=== PATIENT | male | born 1990 | race Caucasian/White ===

== ENCOUNTER 2023-12-14 14:09 | Emergency (ER) | payer SELFPAY ==
[2023-12-14 14:19] VITALS: BP 142/72; PULSE 61; RESP 16; TEMP 37.1; O2SAT 98
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
== END 2023-12-14 14:50 | disposition home or self-care (01) ==
PROVIDERS: Emergency Provider Nurse Practitioner Family
DX: M25.512 Pain in left shoulder (principal); V48.5XXA Car driver injured in noncollision transport accident in traffic accident, initial encounter
CPT/HCPCS: 99203; G0463

== ENCOUNTER 2025-01-02 13:52 | Outpatient (CLI) | payer OTHER, SELFPAY ==
--- OUTSIDE RECORDS SUMMARY | 2001-04-04 09:00 | XMS_ITS | Continuity of Care Document ---
Author Organization [facility] Address [address] [place] [address] [place] [address] Phone Care Team Providers Care Field Technical Support Consultant Name Role Phone Shawn Alexander MD Unavailable Unavailable Advance Directives Directive Yes / No Effective Date File Name No Information Encounters Encounter Description Practice Location Reason(s) For Visit Diagnoses Date Provider Providers Copied on Encounter [facility], [id number] [place] [address] [address], [place], [place], [id number], [place] tel:[phone] SEC [place] [facility] No Information [address]. [address] [facility] [address], [place], [place], [id number], [place]. tel:[phone] Family History Family Member Type Diagnosis Age At Onset No Information Payers Payer name Insurance type Covered green party ID Authoriza tion(s) No Information Social History Type Description Quantity Date Captured Comments Sex Male Smoking Status No Information Chief Complaint And Reason For Visit No Information Reason For Referral Reason For Referral No Information History Of Present Illness Encounter Date Complaint History Of Prese nt Illness No Information Functional Status Date Functional Assessmen t No Information Instructions Date Instruction Additional Infor mation No Information Assessments Type Assessment Date No Information Patient Care Teams Name Effective Dates (start - stop) Status Members No Information
--- OUTSIDE RECORDS SUMMARY | 2024-06-06 04:20 | XMS_ITS ---
Author Organization [facility] Address [address] [place] [address] Care Team Providers Care Statistics Intern Name Role Phone Yg Morrow Primary Care Provider [phone] REASON FOR VISIT f/u Social History Sex Assigned At : Social History Observation Description Sex Assigned At Male Encounters Encounter Location Date Provider Diagnosis [address] [address] 06/06/2024 Yg Morrow Plan Of Treatment No Information Progress Notes * José Luis BUSTILLODOB:1990 (34 yo M)Acc No.[id number]:06/06/2024 UNLOCKED PROGRESS NOTE Progress Notes Patient: José Luis GUILLERMO Provider: Mynor Morrow :1990 A ge:34 Y S ex:Male Date:06/06/2024 Phone: Address:[address] [place], [place] [id number] Subjective: * Chief Complaints: * 1 . F/u. * Medical History: Objective: * Vitals: Assessment: Plan: * Treatment: * * Electronic signature of Sagar Morrow , [id number] on 01/02/2025 at 04:25 PM CDT Sign off status: Pending * Provider: Mynor Morrow Date: 0 06/06/2024 Generated for Rodrigue garcia/Michelle/Justice on: 1 04:25 PM CDT
--- OUTSIDE RECORDS SUMMARY | 2024-06-07 03:40 | XMS_ITS ---
Author Organization [facility] Address [address] [place] [address] Care Team Providers Care Pulmonology Physician Name Role Phone Yg Mrorow Primary Care Provider REASON FOR VISIT Follow up Social History Sex Assigned At : Social History Observation Description Sex Assigned At Male Encounters Encounter Location Date Provider Diagnosis [address] [address] 06/07/2024 Yg Morrow Plan Of Treatment No Information Progress Notes * José Luis BUSTILLODOB:1990 (34 yo M)Acc No.[id number]:06/07/2024 UNLOCKED PROGRESS NOTE Progress Notes Patient: José Luis GUILLERMO Provider: Mynor Morrow :1990 A ge:34 Y S ex:Male Date:06/07/2024 Phone: Address:[address] [place], [place] [id number] Subjective: * Chief Complaints: * 1 . Follow up. * Medical History: Objective: * Vitals: Assessment: Plan: * Treatment: * * Electronic signature of Sagar Morrow , [id number] on 01/02/2025 at 04:25 PM CDT Sign off status: Pending * Provider: Mynor Morrow Date: 0 06/07/2024 Generated for Rodrigue garcia/Michelle/Justice on: 1 04:25 PM CDT
--- OUTSIDE RECORDS SUMMARY | 2025-01-02 04:20 | XMS_ITS ---
Author Organization [facility] Address [address] [place] [address] Care Team Providers Care Furnace Hand Name Role Phone Yg Morrow Primary Care Provider [phone] Allergies No Known Allergies REASON FOR VISIT f/u infection Medications Medication SIG (Take, Route, Frequency, Duration) Notes Start Date End Date Status Doxycycline Hyclate 100 MG 1 capsule Ora lly twice a day; Duration: 10 days 01/02/2025 Active Escitalopram Oxalate 10 MG 1 tablet Oral ly Once a day; Duration: 30 days Active Naproxen 500 MG 1 tablet with food o r milk as needed Orally every 12 hrs; Duration: 30 days 02/20/2024 Active Lidocaine 5 % 1 patch remove after 12 hours Externally Once a day; Duration: 30 days As needed TO RIGHT THIGH 04/04/2024 Active Social History Tobacco Use: Social History Observation Description Date Details (start date - stop date) Unknown Sex Assigned At : Social History Observation Description Sex Assigned At Male Tobacco Control (Standard) Question Answer Notes Tobacco use: Uses tobacco in other forms Additional Findings: Tobacco user e-cigarette Vital Signs Weight 246.0 lbs lbs 01/02/2025 Height 72 in in 01/02/2025 BMI 33.36 kg/m2 01/02/2025 Blood pressure systolic 128 mm Hg 01/03/20 25 Blood pressure diastolic 82 mm Hg 025 Heart Rate 82 /min 01/02/2025 Oximetry 98 % 01/02/2025 Temperature 97.8 degrees Fahrenheit 01/03/20 25 Respiratory Rate 16 /min 01/02/2025 Encounters Encounter Location Date Provider Diagnosis [address] [place] [address] 01/02/2025 Yg Morrow Staph infection B95. 8 and Folliculitis L73.9 Assessments Encounter Date Diagnosis (ICD Code) Assessment Notes Treatment Notes Treatment Clinical Notes Section Notes 01/02/2025 Staph infection (ICD-10 - B95.8) Off work 1014-01/12, return 01/13. 01/02/2025 Folliculitis (ICD-10 - L73.9) consider nasal swab for staph if recurrence. Discussed antibacterial soap, hypoallergenic moisturizer. 01/02/2025 Other Learning About the Safe Use of Antibiotics material was discussed. Pt was educated on use of antibiotic medication including dosing, side effects, adverse effects and anticipated response. Pt was also educated on importance of completing full course of treatment as ordered. Patient voiced understanding of all. Plan Of Treatment Medication Medication Name Sig Start Date Stop Date Notes Doxycycline Hyclate 100 MG 1 capsule Ora lly twice a day; Duration: 10 days 01/02/2025 Treatment Notes Assessment Notes Other Learning About the S afe Use of Antibiotics material was discussed. Pt was educated on use of antibiotic medication including dosing, side effects, adverse effects and anticipated response. Pt was also educated on importance of completing full course of treatment as ordered. Patient voiced understanding of all. Future Test Test Name Order Date MRSA Screening Culture 01/02/2025 Next Appt Details Follow Up: 2 Weeks, Reason: After treatment of staph infection Progress Notes * José Luis BUSTILLODOB:1990 (34 yo M)Acc No.[id number]:01/02/2025 Progress Notes Patient: José Luis GUILLERMO Provider: Mynor Morrow :1990 A ge:34 Y S ex:Male Date:01/02/2025 Phone: Address:[address] [place] [address] [facility] Subjective: * Chief Complaints: * F /u infection * HPI: I nterim History: Emergency room visit N o. Was hospitalized N o. Was feeling good. Recurrent infection on skin. Pustules. left neck and lerft arm. right leg. groin. D epression Screening: PHQ-9 L ittle interest or pleasure in doing things?Several days F eeling down, depressed, or hopeless S everal days T rouble falling or staying asleep, or sleeping too much S everal days F eeling tired or having little energy S everal days P oor appetite or overeating S everal F eeling bad about yourself or that you are a failure, or have let yourself or your family down S everal T rouble concentrating on things, such as reading the newspaper or watching television S ever M oving or speaking so slowly that other people could have noticed; or the opposite, being so fidgety or restless that you have been moving around a lot more than usual N ot at all T houghts that you would be better off or of hurting yourself in some way N ot at all T otal Score 7 I nterpretation M ild Depression S creening: [place] Suicide Severity Rating Scale (LF) D o you want to initiate with S creener form 1 . Wish to be : Have you wished you were or wished you could go to sleep and not wake up? N o 2 . Suicidal Thoughts: Have you actually had any thoughts of killing yourself? N o 6 . Suicide Behavior Question: Have you ever done anything,started to do anything, or prepared to end your life? N o I nterpretation: L ow Risk C SSRS Interpretation and Follow Up Plan: CSSRS Interpretation and Follow Up Plan C SSRS Screen documented using SF Y es R isk Disposition from SF L ow - No Follow Up Plan Required F ollow Up Plan N o Follow Up Plan required at this time. T imeframe of Screening T winston * Medical History: * Surgical History: r ight ebow 2004right femur 2004 * Hospitalization/Major Diagno stic Procedure: D enies Past Hospitalization * Family History: F ather: alive. M other: alive. 1 brother(s) - healthy. . dad has high blood pressure. * Social History: P rimary Social History: L iving Arrangement L iving Arrangement: I ndependent Living girlfriend I s this a supportive environment? 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 0 T obacco Use: T obacco Control (Standard) T obacco use: U ses tobacco in other forms A dditional Findings: Tobacco user e -cigarette M iscellaneous: M ethod of learning P referred method of learning: R eading,Discussion,Demonstration,Hearing * Medications: T akingNaproxen 500 MG Tablet 1 tablet with food or milk as needed Orally every 12 hrs Lidocaine 5 % Patch 1 patch remove after 12 hours Externally Once a day As needed TO RIGHT THIGHEscitalopram Oxalate 10 MG Tablet 1 tablet Orally Once a day Taking Naproxen 500 MG Tablet 1 tablet with food or milk as needed Orally every 12 hrs Taking Lidocaine 5 % Patch 1 patch remove after 12 hours Externally Once a day As needed TO RIGHT THIGHTaking Escitalopram Oxalate 10 MG Tablet 1 tablet Orally Once a day * Allergies: N .K.D.A.no[Allergies Verified] Objective: * Vitals: I nitials: dt, Wt:246.0 lbs, Ht: 72 in, BMI:33.36, BP:128/82, HR:82, Oxygen sat %:98, Temp:97.8, RR:16, Pain scale:3. * Examination: G eneral Examination: GENERAL APPEARANCE: w ell developed, well nourished, in no acute distress. SKIN: C lusters of dried papules on left lateral neck, left FA, one pustule left proximal medial FA.. Assessment: * Assessment: 1. S taph infection - B95.8 (Primary) 2 . F olliculitis - L73.9 ? Plan: * Treatment: 2. F olliculitis Clinical Notes: consider nasal swab for staph if recurrence. Discussed antibacterial soap, hypoallergenic moisturizer. 3. O thers Notes:Learning About the Safe Use of Antibiotics material was discussed. Pt was educated on use of antibiotic medication including dosing, side effects, adverse effects and anticipated response. Pt was also educated on importance of completing full course of treatment as ordered. Patient voiced understanding of all. * Recommended Wellness and Pre vention Guidelines: * S tatus A lert L ast Done N ext Due A ction Taken N ONCOMPLIANT A lcohol use screening - 1 - - N ONCOMPLIANT H IV screening - 1 - - * Procedure Codes: 3 008F BODY MASS INDEX [id number] Education given- Antibiotics [id number] MEDICAL NUTRITION, INDIV, [id number] BEHAV CHNG SMOKING 3-10 MIN * Preventive Medicine: Counseling: C are goal follow-up plan: BMI management provided Y es Above Normal BMI Follow-up L ifestyle education regarding diet S MOKING: Patient counselled on the dangers of tobacco use and urged to quit. 1 . * Follow Up: 2 Weeks (Reason: After treatment of staph infection) * * Sign off status: Completed true * Provider: Mynor Morrow Date: 1 Generated for Rodrigue garcia/Michelle/Justice on: 04:25 PM CDT History and Physical Notes * HPI (History of Present Illness) Category Sub-Category Detail Notes Category Not es Interim History Was hospitalized No Was feel ing good. Recurrent infection on skin. Pustules. left neck and lerft arm. right leg. groin. Emergency room visit No Depression Screening PHQ-9 Little inte rest or pleasure in doing things: Several days Feeling down, depressed, or hopeless: Se veral days Trouble falling or staying asleep, or sl eeping too much: Several days Feeling tired or having little energy: S everal days Poor appetite or overeating: Several day s Feeling bad about yourself o r that you are a failure, or have let yourself or your family down: Several days Trouble concentrating on thi ngs, such as reading the newspaper or watching television: Several days Moving or speaking so slowly that other people could have noticed; or the opposite, being so fidgety or restless that you have been moving around a lot more than usual: Not at all Thoughts that you would be b matthew off or of hurting yourself in some way: Not at all Total Score: 7 Interpretation: Mild Depression Screening [place] Suicide Sev erity Rating Scale (LF) Do you want to initiate with: Screener form 1. Wish to be : Have you wished you were or wished you could go to sleep and not wake up?: No 2. Suicidal Thoughts: Have you actually had any thoughts of killing yourself?: No 6. Suicide Behavior Question: Have you ever done anything,started to do anything, or prepared to end your life?: No Interpretation:: Low Risk CSSRS Interpretation and Follow Up Plan CSSRS Interpretation and Follow Up Plan CSSRS Screen documented using SF: Yes Risk Disposition from SF: Low - No Follo w Up Plan Required Follow Up Plan: No Follow Up Plan requir ed at this time. Timeframe of Screening: Today Examination Category Sub-Category Detail Notes Category Not es General Examination GENERAL APPEARANCE: well dev eloped, well nourished, in no acute distress SKIN: Clusters of dried pa pules on left lateral neck, left FA, one pustule left proximal medial FA.
[2025-01-02 15:43] LABS: MRSA (PCR) NOT DETECTED (NOT DETECTE)
--- OUTSIDE RECORDS SUMMARY | 2025-01-02 16:26 | XMS_ITS | Patient Health Record ---
Author Organization [facility] Address [address] [place] [address] Care Team Providers Care Academic Dean Name Role Phone Yg Morrow Primary Care Provider Aleah Rhodes Unavailable [phone] Allergies No Known Allergies Reason For Referral Reason BACK INJURY AT WORK WITH ONGOING PAIN, PREFERS DR. 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) Referral Organization [facility] Referring Provider First Name Yg Referring Provider Last Name Odalys Referring Provider Speciality Internal M edicine Referred Provider Specialty Neurological Surgery General Notes Soren SORIANO, Roberta Lowe 02:37:47 PM >referral faxed letter mailed Clinical Notes : [facility] [address] Claudia Munoz , [address] [place] [address] [address], [place] [address], , fax [phone] Referral Priority Urgent Medications Medication SIG (Take, Route, Frequency, Duration) [...] other forms Additional Findings: Tobacco user e-cigarette Problems Problem Type SNOMED Code ICD Code Onset Dates Problem Status W/U Status Risk Notes Problem Depression (042538477) Depression (F32.9) 02/22/20 24 Active confirmed Problem Attention deficit hyperactivity disorder (086435969) ADHD (attention deficit hyperactivity disorder) (F90.9) Active confirmed Vital Signs Heart Rate 82 /min 01/02/2025 Temperature 97.8 degrees Fahrenheit 01/02/2025 Respiratory Rate 16 /min 01/02/2025 Blood pressure diastolic 82 mm Hg 01/02/2025 Oximetry 98 % 01/02/2025 Height 72 in in 01/02/2025 Blood pressure systolic 128 mm Hg 01/02/2025 Weight 246.0 lbs lbs 01/02/2025 BMI 33.36 kg/m2 01/02/2025 Encounters Encounter Location Date Provider Diagnosis [address] [address] 02/20/2024 Yg Morrow Depression F32.9 ; Right elbow pain M25.521 and Right thigh pain M79.[address] [address] 02/20/2024 Aleah Rhodes [address] [address] 04/04/2024 Yg Morrow Right thigh pain M79.[address] [address] 06/14/2024 Yg Morrow Depression F32.9 and ADHD (attention deficit hyperactivity disorder) F90.[address] [address] 12/07/2024 Yg Morrow Staph infection B95. 8 ; Depression F32.9 and Dorsalgia of multiple sites in spine M54.[address] [place] [address] 01/02/2025 Yg Morrow Staph infection B95. 8 and Folliculitis L73.[address] [place] [address] 12/14/2024 Yg Morrow Assessments Encounter Date Diagnosis (ICD Code) Assessment Notes Treatment Notes Treatment Clinical Notes Section Notes 12/07/2024 Staph infection (ICD-10 - B95.8) DISCUSSED THAT A STAPH INFECTION SHOULD NOT BE TREATED WITH TOPICAL STEROIDS AND THAT TRIAMCINOLONE 0.5% IS A PRESCRIPTION ONLY CREAM. 01/02/2025 Staph infection (ICD-10 - B95.8) Off work 1014-01/12, return 01/13. 01/02/2025 Folliculitis (ICD-10 - L73.9) consider nasal swab for staph if recurrence. Discussed antibacterial soap, hypoallergenic moisturizer. 02/20/2024 Depression (ICD-10 - F32.9) 02/20/2024 Right elbow pain (ICD-10 - M25.521) CONTINUE STRETCHES 04/04/2024 Right thigh pain (ICD-10 - M79.651) 06/14/2024 Depression (ICD-10 - F32.9) 06/14/2024 ADHD (attention deficit hyperactivity disorder) (ICD-10 - F90.9) PREFERS NO TREATMENT 12/07/2024 Depression (ICD-10 - F32.9) DOING WELL. DISCUSSED AVOIDING PROCESSED SUGAR AND LATE NIGHT EATING. 02/20/2024 Right thigh pain (ICD-10 - M79.651) CONTINUE STRETCHES. DISCUSSED LOWER BODY LOW IMPACT BODY WEIGHT EXERCISES 12/07/2024 Dorsalgia of multiple sites in spine (ICD-10 - M54.9) WISHES REFERRAL TO SPINE SURGEON FOR WORKMAN'S COMP, PREFERS DR. MUNOZ 02/20/2024 Other HE DEFERS LABS AND XR'S UNTIL AFTER HE IS INSURED. 02/20/2024 Other Mig Welder met with José Luis to review his [facility] as a new PCP patient. José Luis had a PHq score of 6. José Luis report no needs/resources at the moment and was provided with HN card if any future needs arise. 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 01/02/2025 Other Learning About the Safe Use of Antibiotics material was discussed. Pt was educated on use of antibiotic medication including dosing, side effects, adverse effects and anticipated response. Pt was also educated on importance of completing full course of treatment as ordered. Patient voiced understanding of all. Plan Of Treatment Future Test Test Name Order Date Xray : Femur, right 04/04/2024 MRSA Screening Culture 01/02/2025 Medical (General) History Surgical History Surgery Date(Month/Year) right ebow 2003 right femur 2005
== END 2025-01-02 13:53 | disposition home or self-care (01) ==
PROVIDERS: Visit Provider Internal Medicine
DX: L73.9 Follicular disorder, unspecified (principal); B95.8 Unspecified staphylococcus as the cause of diseases classified elsewhere
CPT/HCPCS: 87641